=== PATIENT | female | born 1990 | race Hispanic/Latino ===

== ENCOUNTER 2024-11-26 22:23 | Emergency (ER) | payer SELFPAY ==
[~2024-11-26] VITALS: Ht 149.9 cm; Wt 86.6 kg
[2024-11-26] MEDS: ASPIRIN 325 MG TAB PO ONE (23:07)
[2024-11-26] MEDS: CLONIDINE HCL 0.1 MG TAB PO ONE (23:07)
[2024-11-26] MEDS ORDERED: IOPAMIDOL 370 MG/ML 100 ML INFUS..BTL INJ ONE (23:51)
[2024-11-27 00:28] VITALS: PULSE 66; RESP 18; TEMP 97.9
[2024-11-27] MEDS ORDERED: LOSARTAN POTASS25 MG PO (01:51)
[2024-11-27 01:52] VITALS: BP 156/87; PULSE 66; RESP 18; TEMP 97.9; O2SAT 99
== END 2024-11-27 02:04 | disposition home or self-care (01) ==
LOC: FSED 22:28
DX: R07.9 Chest pain, unspecified (principal); L30.9 Dermatitis, unspecified; I10 Essential (primary) hypertension; E11.9 Type 2 diabetes mellitus without complications; E78.5 Hyperlipidemia, unspecified
CPT/HCPCS: 71260; 80053; 80076; 80307; 81003; 81025; 82553; 83880; 84484; 85025; 85379; 93005; 99284; Q9967